=== PATIENT | male | born 1990 | race Caucasian/White ===

== ENCOUNTER 2022-04-20 09:32 | Outpatient (CLI) | payer OTHER ==
[2022-04-20 10:29] VITALS: BP 112/72
--- NOTE | 2022-04-20 10:29 | SLEEP CARE CONSULTATION ---
Information from patient questionnaire entered by Sandra Parra. I have reviewed and concur with the information entered by Sandra Parra. This document represents the service I personally performed and the decisions made by me, Julisa Tang ARNP. History of Present Illness Service Date and Time: 04/20/2022 0932 Reason for Visit: New patient Chief Complaint: reports: Insomnia, Unrefreshed sleep, Snoring, Observed pauses in breathing, Fatigue Date of Onset: 2-3YRS Usual bedtime: 2129 Time it takes to fall asleep: 15-120MIN Snores at night: Yes Observed to quit breathing while asleep: Yes Sleeps alone due to snoring: No Number of times waking at night: UNSURE; he only remembers 1-2 times Reasons for waking at night: reports: Bathroom, Other (NOISE AND UNKNOWN). denies: Choking, Snoring, Gasping for air Toss, Turn, or Twitch while sleeping: Yes Recalls having dreams: Yes Usually gets out of bed at: 0600; weekends 0800 or so Feels refreshed in the morning: No Morning headache: Yes (1-2 times a week; last about an hour) Sleepy or fatigued during the day: Yes Ever fallen asleep while driving: No Takes day naps: No Prior sleep studies: No Additional HPI information: I had the pleasure of seeing CHU VELAZQUEZ today regarding the possibility of him having a sleep disorder. His current complaints are fatigue, insomnia, observed pauses in breathing, snoring and unrefreshed sleep. He states in the last 2-3 years his is telling him that he is making a gargling type sound with gasping when he is sleeping. He is snoring too. He also does some "pursed- lipped" breathing when sleeping too that he states his father does as well. He states he has some restless leg feelings that affects his legs almost every night. It is really bothersome about 2-3 times a week and sometimes the "kicking" will wake him up. He is tired throughout the day and does not wake up feeling rested. 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 Patient is and lives in . Have you smoked in the past 12 months: No Alcohol use: No Caffeine use: Yes Caffeine amount and frequency: 200MG CAFFIENE Family History Family history of sleep disordered breathing: Yes Family Hx Sleep Apnea: Father: Snoring, Sleep apnea - Untreated, Sibling: Snoring, Sleep apnea - Untreated Allergies and Home Medications Known drug allergies: No Drug allergies reviewed: Yes (NKDA) Home medication list reviewed: Yes Allergy and home medication list: Medications: Flonase daily Famotidine 20 mg daily Danielle, prn Refresh eye drops, prn Review of Systems Cardiovascular: denies: high blood pressure Gastrointestinal: reports: heartburn, diarrhea Neurological: denies: headaches, head trauma Psychiatric: denies: Attention Deficit Hyperactivity, anxiety, depression, mood disorder Ear/Nose/Throat: reports: wisdom teeth removed. denies: tonsillectomy Endocrine: denies: thyroid disease Musculoskeletal: reports: joint pain, neck pain, back pain Immunologic: reports: allergies to food or environment (seasonal allergies) Physical Exam Vital signs obtained and entered by: SANDRA Cool MA Blood Pressure: 112/72 (LEFT ARM) Cuff size: regular Heart Rate: 61 O2 Saturation: 97 Height: 5 ft 11 in Weight: 196 lb 12.8 oz Body Mass Index: 27.4 BMI Classification: Overweight Neck circumference: 17 Nostrils: patent to airflow Mouth and throat: narrow oropharynx Soft palate: long Hard palate: normal Uvula: normal Uvula visualization: 50% Mallampati Class II Tongue: enlarged in size with teeth peres on lateral edges Tonsils: 1+ Neck: normal w/o lymphadenopathy or thyromegaly Heart: regular rate and rhythm Lungs: clear bilaterally Impression and Plan 1. Suspected Obstructive Sleep Apnea-Hypopnea Syndrome, as suggested by a hi story of loud and irregular snoring, observed cessation of breath while asleep, gasping or choking in sleep, morning headache and unrefreshed sleep. Narrow oropharynx and obesity are common predisposing factors for obstructive sleep apnea-hypopnea syndrome. I recommend proceeding to polysomnography to confirm the diagnosis and to assess severity. If the patient has significant sleep disordered breathing, a manual CPAP titration study will also be performed to find the optimal treatment pressure. I informed the patient of what the sleep studies involve and after some discussion, obtained agreement to proceed. The pathophysiology of obstructive sleep apnea-hypopnea syndrome was discussed with the patient and health risks of cardiovascular and cerebrovascular disease if not treated. 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 Patient agreed to plan. * Schedule polysomnography * Avoid long distance driving or driving when feeling sleepy. * Avoid alcohol, sedative and muscle relaxant around bedtime. * Attempt to lose weight. * Review instructions provided by trained office staff on how to prepare for the sleep study. * Return for follow-up after sleep study completed. Counseling Topics: Weight loss health impact Visit Type: In Office Time Spent with Patient (minutes): 31 Provider Statement: I spent 100% of the Face to Face Visit with the patient with greater than 50% spent counseling the patient and coordination of care.
== END 2022-04-20 09:33 | disposition home or self-care (01) ==
LOC: SC 09:32
PROVIDERS: ATTEND Nurse Practitioner Family
DX: R06.83 Snoring (principal); R06.81 Apnea, not elsewhere classified; G47.8 Other sleep disorders; R51.9 Headache, unspecified
CPT/HCPCS: 99203; 99212

== ENCOUNTER 2022-04-23 20:32 | Outpatient (CLI) | payer OTHER | END 2022-04-23 20:33 | disposition home or self-care (01) | LOC: SC 20:32 | PROVIDERS: ATTEND Nurse Practitioner Family | DX: R06.83 Snoring (principal); G47.8 Other sleep disorders | CPT/HCPCS: 95810 ==